=== PATIENT | male | born 1995 | race Two or more races ===

== ENCOUNTER 2020-05-05 14:18 | Emergency (ER) | payer SELFPAY ==
[~2020-05-05] VITALS: Ht 167.6 cm; Wt 79.4 kg
[2020-05-05 14:49] VITALS: BP 148/87
[2020-05-05] MEDS ORDERED: cefTRIAXone SOD 1,000 MG VL IM ONE (16:00)
== END 2020-05-05 16:16 | disposition home or self-care (01) ==
LOC: ER 14:18
DX: J02.9 Acute pharyngitis, unspecified (principal)
CPT/HCPCS: 96372; 99283; J0696